=== PATIENT | male | born 1990 | race African-American/Black ===

== ENCOUNTER 2017-11-05 11:30 | Emergency (ER) | payer SELFPAY ==
[2017-11-05] MEDS: ERYTHROMYCIN OPHTH OINT OU (15:04)
== END 2017-11-05 15:05 | disposition home or self-care (01) ==
LOC: M ED 11:30
DX: J02.0 Streptococcal pharyngitis (principal); H10.023 Other mucopurulent conjunctivitis, bilateral
CPT/HCPCS: 87880

== ENCOUNTER 2018-07-30 23:51 | Emergency (ER) | payer SELFPAY ==
[2018-07-31] MEDS: ACYCLOVIR 200 MG CAPSULE PO (00:37)
[2018-07-31] MEDS: GABAPENTIN 300 MG CAP PO (00:37)
== END 2018-07-31 00:44 | disposition home or self-care (01) ==
LOC: M ED 23:51
DX: B02.9 Zoster without complications (principal)
CPT/HCPCS: 99282

== ENCOUNTER 2021-08-29 11:00 | Outpatient (CLI) | payer OTHER ==
[~2021-08-29] VITALS: Ht 177.8 cm; Wt 126.0 kg
[~2021-08-29 11:00] MED LIST: ALBUTEROL 90 MCG/ACT 8GM HFA INHALER INH PRN; ALBUTEROL SULFATE 2.5 MG/0.5 ML INH NEB SOLN INH PRN; EPINEPHrine INJ 1 MG/ML 1ML AMP IM PRN; ERYT5OIN25 OU; FLON1SPR; IBUP-1022 PO; MAGICMW MT; MAGICMW SSP; NEUR300C PO; NS 1,000 ML IV SCH; ZOVI800T PO; diphenhydrAMINE 50MG/ML VIAL (J1200) IV PRN; methylPREDNISolone 125MG 2ML VIAL IV PRN
[2021-08-29] MEDS ORDERED: CASIRIVIMAB/IMDEVIMAB 1,200 MG in NS 250 ML IV ONE (11:30)
[2021-08-29 11:32] VITALS: BP 140/83
[2021-08-29 12:02] VITALS: BP 125/56
[2021-08-29 12:32] VITALS: BP 116/56
[2021-08-29 13:32] VITALS: BP 119/58
== END 2021-08-29 13:32 | disposition home or self-care (01) ==
LOC: M OPCLI4PR 11:00
PROVIDERS: ATTEND Nurse Practitioner Family
DX: U07.1 COVID-19 (principal)

== ENCOUNTER 2021-09-19 19:39 | Emergency (ER) | payer OTHER ==
[~2021-09-19] VITALS: Ht 177.8 cm; Wt 138.0 kg
[~2021-09-19 19:39] MED LIST changes: -ALBUTEROL 90 MCG/ACT 8GM HFA INHALER INH PRN; -ALBUTEROL SULFATE 2.5 MG/0.5 ML INH NEB SOLN INH PRN; -EPINEPHrine INJ 1 MG/ML 1ML AMP IM PRN; -NS 1,000 ML IV SCH; -diphenhydrAMINE 50MG/ML VIAL (J1200) IV PRN; -methylPREDNISolone 125MG 2ML VIAL IV PRN
[2021-09-19 19:42] VITALS: BP 164/96
[2021-09-19] MEDS ORDERED: AMOXICILLIN 500 MG CAP PO ONE (20:45)
[2021-09-19] MEDS ORDERED: AMOX875T PO (20:51)
== END 2021-09-19 21:06 | disposition home or self-care (01) ==
LOC: M ED 19:39
DX: K02.9 Dental caries, unspecified (principal); K04.7 Periapical abscess without sinus; M25.461 Effusion, right knee; Z79.899 Other long term (current) drug therapy

== ENCOUNTER 2024-12-15 08:55 | Emergency (ER) | payer SELFPAY, OTHER ==
[~2024-12-15] VITALS: Ht 177.8 cm; Wt 117.4 kg
[~2024-12-15 08:55] MED LIST changes: +AMOX875T PO
[2024-12-15] MEDS ORDERED: AMOX875T2 PO (10:05)
[2024-12-15 10:23] VITALS: BP 141/88; TEMP 98.1; O2SAT 99
== END 2024-12-15 10:28 | disposition home or self-care (01) ==
LOC: M ED 08:55
DX: S01.81XA Laceration without foreign body of other part of head, initial encounter (principal); Y92.019 Unspecified place in single-family (private) house as the place of occurrence of the external cause; Y93.9 Activity, unspecified; Y99.9 Unspecified external cause status; W54.0XXA Bitten by dog, initial encounter; Z79.2 Long term (current) use of antibiotics